=== PATIENT | male | born 1970 | race Caucasian/White ===

== ENCOUNTER 2019-06-21 17:26 | Inpatient (IN) | payer BC ==
[2019-06-21] MEDS ORDERED: FAMOTIDINE 20 MG/2 ML VIAL IV ONE (17:49)
[2019-06-21] MEDS ORDERED: NA CHLORIDE 0.9% 1,000 ML ONE (17:49)
[2019-06-21] MEDS ORDERED: PIPER/TAZO/NS 3.375gm 3.375 GM/100 ML BAG ONE (17:50)
[2019-06-21 17:53] LABS: Basophils % 0.1 % (0-1.3); Hematocrit 44.2 % (39.6-49.0); Lymphocytes % 5.7 % (15.3-44.8); MPV 8.5 fL (7.6-11.3); RBC Red Blood Cell Count 5.13 M/uL (4.33-5.43)
--- NOTE | 2019-06-21 17:54 | ER ---
Nurse's Notes [facility] Name: Deven Yang Jr Age: 48 yrs Sex: Male : 1970 Arrival Date: 06/21/2019 Time: 17:29 Bed 23 Private MD: Glen Corona R Diagnosis: Abdominal tenderness;Elevated white blood cell count;Cholelithiasis;Type 2 diabetes mellitus Presentation: 06/21 17:31 Presenting complaint: Patient states: sent by Dr Lawrence's office for cholecystitis, c/o sv epigastric and RUQ pain since Friday. Transition of care: patient was not received from another setting of care. Onset of symptoms was June 20, 2019. Risk Assessment: Do you want to hurt yourself or someone else? Patient reports no desire to harm self or others. Initial Sepsis Screen: Does the patient meet any 2 criteria? No. Patient's initial sepsis screen is negative. Does the patient have a suspected source of infection? No. Patient's initial sepsis screen is negative. Care prior to arrival: None. 17:31 Method Of Arrival: Ambulatory sv 17:31 Acuity: AB 3 sv Historical: - Allergies: 17:32 No Known Allergies; sv - PMHx: 17:32 Diabetes - NIDDM; sv - Immunization history:: Adult Immunizations up to date. - Social history:: Smoking status: unknown. - Family history:: not pertinent. - Ebola Screening: : No symptoms or risks identified at this time. Screenin:02 Abuse screen: Denies threats or abuse. Denies injuries from another. Nutritional rv screening: No deficits noted. Tuberculosis screening: No symptoms or risk factors identified. Fall Risk None identified. Assessment: 18:01 General: Appears in no apparent distress. comfortable, Behavior is calm, cooperative. rv Pain: Complains of pain in abdomen. Neuro: Level of Consciousness is awake, alert, obeys commands, Oriented to person, place, time, situation. Cardiovascular: Patient's skin is warm and dry. Respiratory: Airway is patent. GI: No signs and/or symptoms were reported involving the gastrointestinal system. : No signs and/or symptoms were reported regarding the genitourinary system. EENT: No signs and/or symptoms were reported regarding the EENT system. Derm: Skin is intact. Musculoskeletal: No signs and/or symptoms reported regarding the musculoskeletal system. Vital Signs: 17:33 BP 153 / 89; Pulse 105; Resp 18; Temp 97.9; Pulse Ox 96% ; Weight 105.23 kg; Height 5 sv ft. 11 in. (180.34 cm); Pain 3/10; 18:30 BP 140 / 67; Pulse 97; Resp 24; Pulse Ox 98% on R/A; rv 19:30 BP 140 / 53; Pulse 97; Resp 23; Pulse Ox 97% on R/A; rv 20:17 BP 132 / 66; Pulse 99; Resp 21; Temp 98; Pulse Ox 96% on R/A; rv 17:33 Body Mass Index 32.36 (105.23 kg, 180.34 cm) sv ED Course: 17:29 Patient arrived in ED. mr 17:29 Glen Corona MD is Private Physician. mr 17:32 Triage completed. sv 17:33 Arm band placed on. sv 17:34 Uri Ca MD is Attending Physician. angella 17:36 Ahmet Cueto RN is Primary Nurse. rv 17:52 Ga Self MD is Hospitalizing Provider. angella 17:52 PT-INR Sent. rv 17:55 Inserted saline lock: 18 gauge in right antecubital area, using aseptic technique. rv Blood collected. 17:59 EKG done, by certified medical technician assistant. reviewed by Uri Ca MD. sm3 18:02 Patient has correct armband on for positive identification. Bed in low position. Call rv light in reach. Side rails up X 1. personnel monitor on. Pulse ox on. NIBP on. 18:21 Chest Single View XRAY In Process Unspecified. EDMS 20:19 No provider procedures requiring assistance completed. Patient admitted, IV remains in rv place. Administered Medications: 17:55 Drug: NS 0.9% 1000 ml Route: IV; Rate: 1 bolus; Site: right antecubital; rv 20:20 Follow up: IV Status: Completed infusion rv 18:00 Drug: Pepcid 20 mg Route: IVP; Site: right antecubital; rv 20:12 Follow up: Response: No adverse reaction rv 18:00 Drug: Zosyn 3.375 grams Route: IVPB; Infused Over: 60 mins; Site: right antecubital; rv 20:20 Follow up: IV Status: Completed infusion rv 20:20 Not Given (Patient Refused): morphine 2 mg IVP once; (PAIN>8) RASS on ADMN: Combtv4, rv Very Agttd3, Agttd2, Rstlss1, AlertClm0, Drwsy-1, LtSdtn-2, ModSdtn-3, DpSdtn-4, UnArsble-5 x2 Outcome: 17:53 Decision to Hospitalize by Provider. angella 20:19 Admitted to Tele accompanied by tech, via wheelchair, room 411, with chart, Report rv called to ARTURO DAVID 20:19 Condition: good 20:19 Instructed on the need for admit. 20:41 Patient left the ED. rv Signatures: Dispatcher [employer] Michaelle Resendiz, RN RN Uri Lundy MD MD cha Rivera, Diana mr Bronson, Hollie 3 Ahmet Cueto RN RN rv
--- NOTE | 2019-06-21 17:54 | EDPHYS ---
Physician Documentation [facility] Name: Deven Yang Jr Age: 48 yrs Sex: Male : 1970 Arrival Date: 06/21/2019 Time: 17:29 Bed 23 Private MD: Glen Corona R ED Physician Uri Ca HPI: 06/21 17:47 This 48 yrs old Male presents to ER via Ambulatory with complaints of angella Abnormal Lab Results. 17:47 The patient presents with abdominal pain in the epigastric area, in the upper abdomen, angella abdominal distention in the upper abdomen, in the lower abdomen. Onset: The symptoms/episode began/occurred 2 day(s) ago. The symptoms do not radiate. Associated signs and symptoms: none. The symptoms are described as crampy. Modifying factors: The symptoms are alleviated by nothing, the symptoms are aggravated by food, movement, pressure. Severity of pain: At its worst the pain was moderate in the emergency department the pain has improved mildly. The patient has not experienced similar symptoms in the past. Historical: - Allergies: 17:32 No Known Allergies; sv - PMHx: 17:32 Diabetes - NIDDM; sv - Immunization history:: Adult Immunizations up to date. - Social history:: Smoking status: unknown. - Family history:: not pertinent. - Ebola Screening: : No symptoms or risks identified at this time. ROS: 17:47 Constitutional: Negative for fever, chills, and weight loss, Eyes: Negative for injury, angella pain, redness, and discharge, ENT: Negative for injury, pain, and discharge, Neck: Negative for injury, pain, and swelling, Cardiovascular: Negative for chest pain, palpitations, and edema, Respiratory: Negative for shortness of breath, cough, wheezing, and pleuritic chest pain, Back: Negative for injury and pain, : Negative for injury, bleeding, discharge, and swelling, MS/Extremity: Negative for injury and deformity, Skin: Negative for injury, rash, and discoloration, Neuro: Negative for headache, weakness, numbness, tingling, and seizure, Psych: Negative for depression, anxiety, suicide ideation, homicidal ideation, and hallucinations, Allergy/Immunology: Negative for hives, rash, and allergies, Endocrine: Negative for neck swelling, polydipsia, polyuria, polyphagia, and marked weight changes, Hematologic/Lymphatic: Negative for swollen nodes, abnormal bleeding, and unusual bruising. 17:47 Abdomen/GI: Positive for abdominal pain, abdominal cramps, of the right upper quadrant. Exam: 17:47 Constitutional: This is a well developed, well nourished patient who is awake, alert, angella and in no acute distress. Head/Face: Normocephalic, atraumatic. Eyes: Pupils equal round and reactive to light, extra-ocular motions intact. Lids and lashes normal. Conjunctiva and sclera are non-icteric and not injected. Cornea within normal limits. Periorbital areas with no swelling, redness, or edema. ENT: Nares patent. No nasal discharge, no septal abnormalities noted. Tympanic membranes are normal and external auditory canals are clear. Oropharynx with no redness, swelling, or masses, exudates, or evidence of obstruction, uvula midline. Mucous membranes moist. Neck: Trachea midline, no thyromegaly or masses palpated, and no cervical lymphadenopathy. Supple, full range of motion without nuchal rigidity, or vertebral point tenderness. No Meningismus. Chest/axilla: Normal chest wall appearance and motion. Nontender with no deformity. No lesions are appreciated. Cardiovascular: Regular rate and rhythm with a normal S1 and S2. No gallops, murmurs, or rubs. Normal PMI, no JVD. No pulse deficits. Respiratory: Lungs have equal breath sounds bilaterally, clear to auscultation and percussion. No rales, rhonchi or wheezes noted. No increased work of breathing, no retractions or nasal flaring. Back: No spinal tenderness. No costovertebral tenderness. Full range of motion. Male : Normal genitalia with no discharge or lesions. Skin: Warm, dry with normal turgor. Normal color with no rashes, no lesions, and no evidence of cellulitis. MS/ Extremity: Pulses equal, no cyanosis. Neurovascular intact. Full, normal range of motion. Neuro: Awake and alert, GCS 15, oriented to person, place, time, and situation. Cranial nerves II-XII grossly intact. Motor strength 5/5 in all extremities. Sensory grossly intact. Cerebellar exam normal. Normal gait. Psych: Awake, alert, with orientation to person, place and time. Behavior, mood, and affect are within normal limits. 17:47 Abdomen/GI: Inspection: distension, Bowel sounds: active, Palpation: moderate abdominal tenderness, in the epigastric area and right upper quadrant, Liver: no appreciated palpable abnormalities, Hernia: not appreciated. Vital Signs: 17:33 BP 153 / 89; Pulse 105; Resp 18; Temp 97.9; Pulse Ox 96% ; Weight 105.23 kg; Height 5 sv ft. 11 in. (180.34 cm); Pain 3/10; 18:30 BP 140 / 67; Pulse 97; Resp 24; Pulse Ox 98% on R/A; rv 19:30 BP 140 / 53; Pulse 97; Resp 23; Pulse Ox 97% on R/A; rv 20:17 BP 132 / 66; Pulse 99; Resp 21; Temp 98; Pulse Ox 96% on R/A; rv 17:33 Body Mass Index 32.36 (105.23 kg, 180.34 cm) sv MDM: 17:35 Patient medically screened. [facility] 17:51 Data reviewed: vital signs, nurses notes, lab test result(s), EKG, radiologic studies, [facility] plain films, ultrasound. 06/21 17:36 Order name: Basic Metabolic Panel; Complete Time: 18:55 [facility] 06/21 17:36 Order name: CBC with Diff; Complete Time: 18:55 [facility] 06/21 17:36 Order name: Creatinine for Radiology; Complete Time: 18:55 [facility] 06/21 17:36 Order name: Hepatic Function; Complete Time: 18:55 [facility] 06/21 17:36 Order name: Lipase; Complete Time: 18:55 [facility] 06/21 17:47 Order name: PT-INR; Complete Time: 18:55 [facility] 06/21 17:36 Order name: IV Saline Lock; Complete Time: 17:55 [facility] 06/21 17:40 Order name: EKG; Complete Time: 17:41 [facility] 06/21 17:40 Order name: Chest Single View XRAY; Complete Time: 18:55 [facility] 06/21 17:36 Order name: Labs collected and sent; Complete Time: 17:55 [facility] 06/21 17:40 Order name: EKG - Nurse/Tech; Complete Time: 17:47 [facility] Administered Medications: 17:55 Drug: NS 0.9% 1000 ml Route: IV; Rate: 1 bolus; Site: right antecubital; rv 20:20 Follow up: IV Status: Completed infusion rv 18:00 Drug: Pepcid 20 mg Route: IVP; Site: right antecubital; rv 20:12 Follow up: Response: No adverse reaction rv 18:00 Drug: Zosyn 3.375 grams Route: IVPB; Infused Over: 60 mins; Site: right antecubital; rv 20:20 Follow up: IV Status: Completed infusion rv 20:20 Not Given (Patient Refused): morphine 2 mg IVP once; (PAIN>8) RASS on ADMN: Combtv4, rv Very Agttd3, Agttd2, Rstlss1, AlertClm0, Drwsy-1, LtSdtn-2, ModSdtn-3, DpSdtn-4, UnArsble-5 x2 Disposition: 06/21/19 17:53 Hospitalization ordered by Ga Self for Inpatient Admission. Preliminary diagnosis are Abdominal tenderness, Elevated white blood cell count, Cholelithiasis, Type 2 diabetes mellitus. - Bed requested for Telemetry/MedSurg (Inpatient). - Status is Inpatient Admission. rv - Condition is Fair. - Problem is new. - Symptoms have improved. UTI on Admission? No Signatures: Dispatcher [employer] EDUT Michaelle Rizo RN RN sv Anderson, Corey, MD MD cha Garcia, Cindy, RN RN Ahmet Cueto RN RN rv Corrections: (The following items were deleted from the chart) 18:01 17:41 Abdomen Limited+US.RAD.BRZ ordered. [facility] EDUT 19:49 17:53 Hospitalization Ordered by Ga Self MD for Inpatient Admission. Preliminary cg diagnosis is Abdominal tenderness; Elevated white blood cell count; Cholelithiasis; Type 2 diabetes mellitus. Bed requested for Telemetry/MedSurg (Inpatient). Status is Inpatient Admission. Condition is Fair. Problem is new. Symptoms have improved. UTI on Admission? No. angella 20:41 19:49 06/21/2019 17:53 Hospitalization Ordered by Ga eSlf MD for Inpatient rv Admission. Preliminary diagnosis is Abdominal tenderness; Elevated white blood cell count; Cholelithiasis; Type 2 diabetes mellitus. Bed requested for Telemetry/MedSurg (Inpatient). Status is Inpatient Admission. Condition is Fair. Problem is new. Symptoms have improved. UTI on Admission? No. cg
[2019-06-21 18:06] LABS: Protime INR 1.32
[2019-06-21 18:22] LABS: Albumin 4.5 g/dL (3.4-5.0); Bilirubin Direct 0.3 mg/dL (0-0.2); Bilirubin Total 0.9 mg/dL (0.2-1.0); Potassium 4.4 mmol/L (3.5-5.1); Protein, Total 8.6 g/dL (6.4-8.2)
--- NOTE | 2019-06-21 18:38 | RAD REPORT ---
EXAM DESCRIPTION: RAD - Chest Single View - 06/21/2019 6:23 pm CLINICAL HISTORY: ABDOMINAL DISTENTION Chest pain. COMPARISON: No comparisons FINDINGS: Portable technique limits examination quality. Small calcified granuloma seen left mid lung. The lungs are otherwise clear. The heart is normal in s ize. No displaced fractures.
[2019-06-21] MEDS ORDERED: ONDANSETRON 4 MG/2 ML VIAL IV PRN (20:43)
[2019-06-21] MEDS: INSULIN -REGULAR HUMAN 50 UNIT/0.5 ML ML SQ SCH (21:00)
[2019-06-21 21:43] VITALS: BMI 32.3
[2019-06-21] MEDS: NA CHLORIDE 0.9% 1,000 ML IV SCH (22:00)
[2019-06-22 04:50] LABS: Urine Appearance CLEAR; Urine Bilirubin NEGATIVE (NEG); Urine Blood NEGATIVE (NEG); Urine Color YELLOW; Urine Glucose 3+ (NEG); Urine Protein 2+ (NEG); Urine Specific Gravity >=1.030 (1.005-1.030); Urine Urobilinogen 0.2 mg/dL (0.2-1.0); Urine pH 5.5 (5.0-7.0)
[2019-06-22 04:54] LABS: Absolute Lymphocytes (CBC) 1.2 K/uL (0.7-4.9); Basophils % 0.1 % (0-1.3); Hematocrit 42.9 % (39.6-49.0); MPV 8.8 fL (7.6-11.3); RBC Red Blood Cell Count 4.88 M/uL (4.33-5.43)
[2019-06-22 04:57] LABS: Urine Microscopic Reflex ORDER UMIC
[2019-06-22 05:12] LABS: ALT/SGPT 31 U/L (12-78); AST/SGOT 15 U/L (15-37); Albumin 3.5 g/dL (3.4-5.0); Alkaline Phosphatase 83 U/L (45-117); BUN Blood Urea Nitrogen 14 mg/dL (7-18); Bicarbonate 21 mmol/L (21-32); Bilirubin Total 0.8 mg/dL (0.2-1.0); Glucose Level 158 mg/dL (74-106); HDL Cholesterol 46 mg/dL (40-60); LDL Cholesterol, Calculated 46 (<130); Potassium 4.4 mmol/L (3.5-5.1); Protein, Total 7.8 g/dL (6.4-8.2); Sodium Level 138 mmol/L (136-145)
--- NOTE | 2019-06-22 06:12 | EKG ---
Test Date: 2019-06-21 Test Time: 17:48:23 Patient Service Rep: XOCHITL MEASUREMENT RESULTS: Intervals: Rate: 99 AK: 160 QRSD: 100 QT: 332 QTc: 426 [place]: P: 57 AK: 160 QRS: 106 T: 52 INTERPRETIVE STATEMENTS: Normal sinus rhythm Rightward axis Borderline ECG Compared to ECG 11/10/2015 08:46:04 Right-axis deviation now present Electronically Signed On 06-22-19 06:11:49 CDT by Huan Carrizlaes
[2019-06-22 06:30] LABS: Urine Bacteria <20 /HPF (NONE SEEN); Urine Culture Reflex Order NOT NEEDED; Urine Mucus 1+ /HPF (NONE SEEN); Urine RBC <5 /HPF (NONE SEEN)
[2019-06-22] MEDS: INSULIN -REGULAR HUMAN 50 UNIT/0.5 ML ML SQ SCH ×4 (07:30→21:00)
[2019-06-22] MEDS ORDERED: PNEUMOCOCCAL VACCINE 0.5 ML IMVAC ONE (08:00)
[2019-06-22] MEDS ORDERED: INFLUENZA VACCINE (for 3y+) 0.5 ML DOSE IMVAC ONE (08:00)
[2019-06-22] MEDS: NA CHLORIDE 0.9% 1,000 ML IV SCH ×3 (08:34→13:40)
[2019-06-22 08:36] LABS: Magnesium 2.5 mg/dL (1.8-2.4); Phosphorus 1.7 mg/dL (2.5-4.9)
[2019-06-22] MEDS ORDERED: CEFOXITIN/SWI 1gm 1 GM/10 ML SYR ONE (12:02)
[2019-06-22] MEDS ORDERED: FENTANYL CITR 100 MCG/2 ML ONE ×2 (12:29→13:31)
[2019-06-22] MEDS ORDERED: LIDOCAINE 2% MPF 5 ML VIAL ONE (12:29)
[2019-06-22] MEDS ORDERED: ROCURONIUM 50 MG/5 ML VIAL IV ONE (12:29)
[2019-06-22] MEDS ORDERED: PROPOFOL 200 MG/20 ML VIAL IV ONE (12:29)
[2019-06-22] MEDS ORDERED: MIDAZOLAM HCL 2 MG/2 ML INJ ONE (12:30)
[2019-06-22] MEDS ORDERED: ONDANSETRON 4 MG/2 ML VIAL ONE (12:53)
[2019-06-22] MEDS ORDERED: dexAMETHasone 4 MG/ML VIAL ONE (12:53)
--- NOTE | 2019-06-22 13:04 | CON ---
Date of Consultation: 06/22/2019 Diagnoses: Acute cholecystitis, symptomatic cholelithiasis. History Of Present Illness: This is the case of a 48-year-old patient, comes to us with epigastric r ight upper quadrant pain radiating to the back with nausea and vomiting. The patient has been seen y esterday at another institution, had an ultrasound showed gallstones. The patient came to this [facility], found to have acute cholecystitis. The patient was admitted to the hospital with leukocytosis. The patient has history of diabetes. He denies any dysuria, hematuria, hematochezia, or melena. De nies any recent traveling out of the country. Denies any family member sick at home. Past Medical History: [id number] diabetes. Allergies: NONE. Social History: He does not smoke. He does drink alcohol. Review of Systems: Ten points otherwise remarkable. Physical Examination: General: Patient is awake and alert. HEENT: Pupils are equal and reactive, anicteric. Neck: Supple. Chest: Clear. Abdomen: Gomez sign positive. Epigastric right upper quadrant tenderness with guarding and rebound . The rest of abdomen is soft and depressible. Rectal: Deferred. Extremities: Good capillary refill. Laboratory Data: Blood work shows WBC count of 18.2 with hemoglobin of 15.1. INR is 1.32, glucose 2 00, sodium is 135, total bilirubin of 0.9, alkaline phos is 78. Lipase 296. Ultrasound official rep ort still pending since they are coming from out of [facility]. It is reported as cholecystit is by Dr. Douglas in his office workup. Assessment: Acute cholecystitis, intractable pain sent to outpatient institution. The benefits, alt ernatives, and risks of laparoscopic, possible open cholecystectomy fully explained to the patient, w hich include but are not limited to infection, bleeding, damage to adjacent structures as complicatio n, choledocholithiasis, bile leak, pancreatitis, MD, and even . He also understands this may no t relieve any symptoms. He might need more than one surgical intervention. CESAR/IHSAN Voice ID: [id number] Report ID: [id number]
[2019-06-22] MEDS ORDERED: NA CHLORIDE 0.9% 1,000 ML ONE (13:13)
[2019-06-22] MEDS ORDERED: GLYCOPYRROLATE 0.2 MG/ML SYR ONE (14:15)
[2019-06-22] MEDS ORDERED: NEOSTIGMINE 1 MG/ML -10 ML VIAL ONE (14:22)
--- NOTE | 2019-06-22 14:30 | P.BOP ---
Preoperative diagnosis: acute RUQ pain, acute cholecystitis, symptomatic cholelithiasis Postoperative diagnosis: Purulent cholecystitis, incarcerated recurrent ventral hernia Primary procedure: 1. Laparoscopic cholecystectomy Secondary procedure: 2. Open repair of incarcerated recurrent ventral hernia Program Aide Group Work: Tonia Stein) Estimated blood loss: <50cc Specimen: GB. Hernia sac Findings: acute suppurative cholecystitis Anesthesia: General Complications: None Drain(s): RICHARD drain Transferred to: Recovery Room Condition: Good
--- NOTE | 2019-06-22 15:31 | P.HP ---
Certification for Inpatient Patient admitted to: Observation Practitioner: I am a practitioner with admitting privileges, knowledge of patient current condition, hospital course, and medical plan of care. Services: Services provided to patient in accordance with Admission requirements found in Title 42 Section 412.3 of the Code of Federal Regulations Patient History Date of Service: 06/21/19 Reason for admission: Dr. Garnica History of Present Illness: This is a 48-year-old male with past medical history diabetes, hypertension, hyperlipidemia who was sent from out side hospital for right upper quadrant pain. Patient and workup another outpatient facility, where he was found to have gallstones and acute cholecystitis. Patient preferred this hospital, therefore he was sent to the emergency room here. In the ER, he was found to be hemodynamically stable but labs were remarkable for leukocytosis. His labs were fairly stable, general surgery was consulted from the emergency room and patient was admitted for a acute cholecystitis. At the time of my exam, patient is alert oriented x3, in mild distress due to pain but hemodynamically stable. Allergies No Known Allergies Allergy (Verified 11/10/15 08:37) Home medications list reviewed: Yes Home Medications: Aspirin [Aspirin EC] 81 mg PO DAILY 11/10/15 Lisinopril [Zestril] 2.5 mg PO DAILY WITH BREAKFAST 11/10/15 Multivitamin [Multivitamins] 1 each PO DAILY 11/10/15 Pravastatin [Pravachol] 40 mg PO DAILY 11/10/15 Dapagliflozin Propanediol [Farxiga] 10 mg PO DAILY 06/21/19 Sitagliptin Phos/Metformin HCl [Janumet 50-1,000 mg Tablet] 1 tab PO BID - Past Medical/Surgical History Has patient received pneumonia vaccine in the past: No Diabetic: Yes -: DM -: HTN -: HLD - Social History Smoking Status: Never smoker Alcohol use: No CD- Drugs: No Caffeine use: Yes Place of Residence: Home Review of Systems 10-point ROS is otherwise unremarkable Physical Examination - Vital Signs Temperature: 98.9 F Blood Pressure: 141/69 Pulse: 98 Respirations: 16 Pulse Ox (%): 93 - Physical Exam General: Alert, In no apparent distress, Oriented x3 HEENT: Atraumatic, PERRLA, Mucous membr. moist/pink, EOMI, Sclerae nonicteric Neck: Supple, 2+ carotid pulse no bruit, No LAD, Without JVD or thyroid abnormality Respiratory: Clear to auscultation bilaterally, Normal air movement Cardiovascular: Regular rate/rhythm, Normal S1 S2 Gastrointestinal: Normal bowel sounds, Tenderness (Right upper quadrant) Musculoskeletal: No tenderness Integumentary: No rashes Neurological: Normal gait, Normal speech, Normal strength at 5/5 x4 extr, Normal tone, Normal affect Lymphatics: No axilla or inguinal lymphadenopathy - Studies Laboratory Data (last 24 hrs) 06/21/19 17:56: PT 15.4 H, INR 1.32 06/21/19 17:45: Creatinine 0.98 06/21/19 17:45: WBC 18.2 H, Hgb 15.1, Hct 44.2, Plt Count 236 06/21/19 17:45: Sodium 135 L, Potassium 4.4, BUN 17, Creatinine 1.00, Glucose 200 H, Total Bilirubin 0.9, AST 19, ALT 40, Alkaline Phosphatase 78, Lipase 296 Assessment and Plan - Problems (Diagnosis) (1) Acute cholecystitis Current Visit: Yes Status: Acute (2) Diabetes mellitus Current Visit: Yes Status: Acute (3) Hypertension Current Visit: Yes Status: Acute (4) Hyperlipidemia Current Visit: Yes Status: Acute (5) Obesity (BMI 30.0-34.9) Current Visit: Yes Status: Acute - Plan Admit patient to floor with tele General surgery consulted, awaiting recommendations Pain control IV fluids Monitor vital signs labs Disposition: Patient to be kept NPO post midnight for possible surgical intervention tomorrow - Advance Directives Does patient have a Living Will: No Does patient have a Durable POA for Healthcare: No Time Spent Managing Pts Care (In Minutes): 45
--- NOTE | 2019-06-22 15:32 | P.PN ---
Subjective Date of Service: 06/22/19 Chief Complaint: Dr. Garnica Subjective: No C/O voiced, Improving Patient seen and examined at bedside. No family at bedside. Chart reviewed and case discussed with nursing staff. Awaiting cholecystectomy today Review of Systems 10-point ROS is otherwise unremarkable Physical Examination - Vital Signs Temperature: 98.9 F Blood Pressure: 141/69 Pulse: 98 Respirations: 16 Pulse Ox (%): 93 - Physical Exam General: Alert, In no apparent distress HEENT: Atraumatic, PERRLA, EOMI Neck: Supple, JVD not distended Respiratory: Clear to auscultation bilaterally, Normal air movement Cardiovascular: Regular rate/rhythm, Normal S1 S2 Gastrointestinal: Normal bowel sounds, No tenderness Musculoskeletal: No tenderness Integumentary: No rashes Neurological: Normal speech, Normal tone, Normal affect Lymphatics: No axilla or inguinal lymphadenopathy - Studies Laboratory Data (last 24 hrs) 06/21/19 17:56: PT 15.4 H, INR 1.32 06/21/19 17:45: Creatinine 0.98 06/21/19 17:45: WBC 18.2 H, Hgb 15.1, Hct 44.2, Plt Count 236 06/21/19 17:45: Sodium 135 L, Potassium 4.4, BUN 17, Creatinine 1.00, Glucose 200 H, Total Bilirubin 0.9, AST 19, ALT 40, Alkaline Phosphatase 78, Lipase 296 Assessment And Plan - Current Problems (Diagnosis) (1) Acute cholecystitis Current Visit: Yes Status: Acute (2) Diabetes mellitus Current Visit: Yes Status: Acute (3) Hypertension Current Visit: Yes Status: Acute (4) Hyperlipidemia Current Visit: Yes Status: Acute (5) Obesity (BMI 30.0-34.9) Current Visit: Yes Status: Acute - Plan General surgery consulted, recommendations appreciated Pain control IV fluids IV and Monitor vital signs labs Continue home medications as tolerated Will likely start clear liquid diet after surgery today. Disposition: Pending cholecystectomy today
[2019-06-22] MEDS: PIPER/TAZO/NS 3.375gm 3.375 GM/100 ML BAG IVPB SCH (18:28)
[2019-06-22] MEDS: POTASS/SODIUM PHOSPHATE 1 PKT POWD.PACK PO SCH ×2 (22:03→23:13)
[2019-06-23] MEDS: PIPER/TAZO/NS 3.375gm 3.375 GM/100 ML BAG IVPB SCH ×3 (01:08→15:52)
[2019-06-23] MEDS: HYDROCODONE/APAP 7.5/325 MG TAB PO PRN ×2 (01:09→12:09)
[2019-06-23] MEDS: POTASS/SODIUM PHOSPHATE 1 PKT POWD.PACK PO SCH ×4 (01:09→12:10)
[2019-06-23] MEDS ORDERED: ACETAMINOPHEN 325 MG TABLET PO ONE (01:47)
--- NOTE | 2019-06-23 02:29 | OP ---
Date of Procedure: 06/22/2019 Surgeon: Lucio Miramontes MD Crossing Guard: Tonia Stein. Preoperative Diagnoses: Acute right upper quadrant abdominal pain, acute cholecystitis, symptomatic cholelithiasis. Postoperative Diagnoses: Purulent cholecystitis, incarcerated recurrent ventral hernia. Procedure: Laparoscopic cholecystectomy and open repair of an incarcerated recurrent ventral hernia. Specimens: Gallbladder and hernia sac. Findings: Patient has acute suppurative cholecystitis, inflammation of the gallbladder wall, thicken ing. The gallbladder was distended, open drainage. Patient has purulent discharge. We also have a ventral hernia. Patient has a previous incision in that region. When we went there patient has omen joel coming through that hernia that needs to be reduced and fixed. Anesthesia: General plus local. Indications: This is the case of a 48-year-old patient, who comes to us with abdominal pain. He has history of diabetes. He has been on and off in the medical care for the last few days, not getting better. He has been having this pain for few weeks, but it gets better and gets worse to the point r ight now that he just could not take it anymore. Patient was sent by Dr. Douglas's office to the ER a nd he was admitted and a surgical consult was obtained. He denies any trauma. He denies any hematoc hezia or melena. He denies any recent travelling out of the country. Denies any family member sick at home. Patient said he has history of hernia repair a few years ago in the ventral region. Laparo scopic possible open cholecystectomy was fully explained once again to the patient which include, but are not limited to infection, bleeding, damage to adjacent structures, anesthesia complication, chol elithiasis, bile leak, pancreatitis, OH, and even . He also understands this may not relieve an y symptoms. He might need more than one surgical intervention. He understood, signed a consent. Description Of Procedure: Patient was brought to the operating room, placed in supine position. Ane sthesia was done without complication. Abdominal area was prepped and draped in a sterile fashion. The previous incision was open and when we opened that incision there was a significantly large herni a. There was omentum coming through the hernia sac going to the part of the ventral region, so we we re able to identify the fascia edges, opened the hernia sac, took a look at the omentum, removed the adhesions of omentum to the hernia sac, reduced the omentum, removed the hernia sac and then cutting the fascia edges. This was enough for me to at least put 6 or 7 #1 Prolene to be able to close this large recurrent defect. I put all the stitches and then did not tie 3 of them. The reason I did not tie is because I wanted to put a Mars trocar through it and we did that and obtained pneumoperiton eum. Those stitches will be closed at the end. One we obtained pneumoperitoneum, we found another p roblem. Patient has inflamed gallbladder. The omentum was stuck to the gallbladder, very distended gallbladder. So in order for me to proceed to put 5 mm trocar, 3 of them in the right upper quadrant area and I had to deflate the gallbladder with the help of Endo needle under direct visualization. Purulent discharge was obtained from the gallbladder. Grasper was placed in that area and then in a very slow fashion making sure we went millimeter by millimeter, we were able to remove adhesions of o mentum and even stomach against the gallbladder. At this time I visualized the area of the infundibu lum. At that moment, we proceeded to identify the cystic artery and cystic duct. Common bile duct a nd the hepatic arteries were identified and protected away from the surgical field. I proceeded to l igate those by using at least 3 clips proximal, 1 clip distal, and ligation in the middle. Same was done with the cystic artery. No bile leak. No bleeding. We had the gallbladder retract in the infe rolateral fashion exposing the triangle of Calot, obtaining critical view of safety and then we proce eded with the ligation and also the clips as described above. After that, I proceeded to remove the gallbladder from the liver using Bovie cauterizer. At 1 point, at the distal part, really on top of the liver we had some areas with some gangrenous changes in the gallbladder. So, we removed the gall bladder completely, irrigated the area profusely. Because of all this disease in that area I put a J ackson-Ocampo exiting through one of the trocar sites connected to bulb suction. This was after irrig ation and suction. Before closing the abdomen we made sure that the clips were intact with no bile l eak and no bleeding. At that moment, I proceeded to remove the trocars in direct vision. Deflated t he pneumoperitoneum and then proceeded to close the hernia once again with #1 Prolene in a figure-of- eight fashion multiple times until completely close. The area was irrigated. Patient has a cavity o quinton the ventral region because patient has omentum in that area creating a space, so trying to leave the space the best I can to avoid seroma or abscess and the patient has an infection in the abdomen. Then, after that, I closed the skin with josué. RICHARD connected to bulb suction. Patient tolerated the procedure well. Patient will remain on antibiotics. CESAR/IHSAN Voice ID: [id number] Report ID: [id number]
[2019-06-23] MEDS: NA CHLORIDE 0.9% 1,000 ML IV SCH ×2 (02:41→22:43)
[2019-06-23 05:15] LABS: Hematocrit 36.6 % (39.6-49.0); Lymphocytes % 6.8 % (15.3-44.8); MPV 8.5 fL (7.6-11.3); RBC Red Blood Cell Count 4.15 M/uL (4.33-5.43)
[2019-06-23 05:33] LABS: ALT/SGPT 103 U/L (12-78); AST/SGOT 67 U/L (15-37); Albumin 2.9 g/dL (3.4-5.0); Alkaline Phosphatase 70 U/L (45-117); BUN Blood Urea Nitrogen 13 mg/dL (7-18); Bicarbonate 25 mmol/L (21-32); Bilirubin Total 0.7 mg/dL (0.2-1.0); Glucose Level 191 mg/dL (74-106); Phosphorus 2.2 mg/dL (2.5-4.9); Potassium 4.3 mmol/L (3.5-5.1); Protein, Total 6.8 g/dL (6.4-8.2); Sodium Level 144 mmol/L (136-145)
[2019-06-23] MEDS: INSULIN -REGULAR HUMAN 50 UNIT/0.5 ML ML SQ SCH ×4 (07:30→20:37)
--- NOTE | 2019-06-23 10:00 | P.PN ---
Subjective Date of Service: 06/23/19 Chief Complaint: Dr. Garnica Subjective: Improving Patient seen and examined at bedside. No family at bedside. Chart reviewed and case discussed with nursing staff. s/p cholecystectomy POD#1; C/o soreness in abdomen Tolerating clear liquids Passing gas, No bowel movement yet ambulating without concerns Review of Systems 10-point ROS is otherwise unremarkable Physical Examination - Vital Signs Temperature: 98.2 F Blood Pressure: 134/69 Pulse: 92 Respirations: 18 Pulse Ox (%): 93 - Physical Exam General: Alert, In no apparent distress, Oriented x3 HEENT: Atraumatic, PERRLA, EOMI Neck: Supple, JVD not distended Respiratory: Clear to auscultation bilaterally, Normal air movement Cardiovascular: Regular rate/rhythm, Normal S1 S2 Gastrointestinal: Normal bowel sounds, No tenderness, Other (RICHARD drain in place; incision site clean/dry/intact) Musculoskeletal: No tenderness Integumentary: No rashes Neurological: Normal speech, Normal tone, Normal affect Lymphatics: No axilla or inguinal lymphadenopathy Assessment And Plan - Current Problems (Diagnosis) (1) Acute cholecystitis Current Visit: Yes Status: Acute (2) Diabetes mellitus Current Visit: Yes Status: Acute (3) Hypertension Current Visit: Yes Status: Acute (4) Hyperlipidemia Current Visit: Yes Status: Acute (5) Obesity (BMI 30.0-34.9) Current Visit: Yes Status: Acute - Plan General surgery consulted, recommendations appreciated. Patient s/p POD #1 lap neisha Continue Pain control IV fluids Monitor vital signs labs Continue home medications as tolerated Advance diet per general surgery Disposition: Pending symptomatic improvement; Anticipate discharge tomorrow
[2019-06-23] MEDS ORDERED: ACETAMINOPHEN 325 MG TABLET PO PRN (22:14)
[2019-06-24] MEDS: PIPER/TAZO/NS 3.375gm 3.375 GM/100 ML BAG IVPB SCH ×3 (00:28→15:42)
[2019-06-24] MEDS: NA CHLORIDE 0.9% 1,000 ML IV SCH ×2 (00:28→08:33)
[2019-06-24 04:35] LABS: Absolute Lymphocytes (CBC) 1.3 K/uL (0.7-4.9); Basophils % 0.3 % (0-1.3); Hematocrit 35.2 % (39.6-49.0); Lymphocytes % 13.8 % (15.3-44.8); MPV 8.6 fL (7.6-11.3); RBC Red Blood Cell Count 4.07 M/uL (4.33-5.43)
[2019-06-24 04:43] LABS: ALT/SGPT 77 U/L (12-78); AST/SGOT 43 U/L (15-37); Albumin 2.8 g/dL (3.4-5.0); Alkaline Phosphatase 66 U/L (45-117); BUN Blood Urea Nitrogen 14 mg/dL (7-18); Bicarbonate 28 mmol/L (21-32); Bilirubin Total 0.5 mg/dL (0.2-1.0); Glucose Level 181 mg/dL (74-106); Potassium 3.9 mmol/L (3.5-5.1); Protein, Total 6.6 g/dL (6.4-8.2); Sodium Level 140 mmol/L (136-145)
[2019-06-24] MEDS: INSULIN -REGULAR HUMAN 50 UNIT/0.5 ML ML SQ SCH ×3 (07:30→16:30)
[2019-06-24] MEDS ORDERED: POTASSIUM CL SA 10 MEQ TAB PO ONE (08:00)
[2019-06-24] MEDS: POTASS/SODIUM PHOSPHATE 1 PKT POWD.PACK PO SCH ×3 (08:23→11:43)
[2019-06-24] MEDS ORDERED: HOME MED 1 EA UNK (Dapagliflozin Propanediol [Farxiga] 10 MG) PO SCH (09:00)
[2019-06-24 12:18] VITALS: O2SAT 92
[2019-06-24 16:49] VITALS: BP 139/70; TEMP 97.6
--- NOTE | 2019-06-27 14:41 | P.DS ---
Admission Date: 06/23/19 Discharge Date: 06/24/19 Primary Care Provider: Dr. Garnica Disposition: ROUTINE DISCHARGE Discharge Condition: GOOD Reason for Admission: Abdominal pain Consultations: Dr. Miramontes, general surgery Procedures: Lap choly and open hernia repair - Problems (1) Acute cholecystitis Status: Acute (2) Diabetes mellitus Status: Acute (3) Hypertension Status: Acute (4) Hyperlipidemia Status: Acute (5) Obesity (BMI 30.0-34.9) Status: Acute Brief History of Present Illness: This is a 48-year-old male with past medical history diabetes, hypertension, hyperlipidemia who was sent from out side hospital for right upper quadrant pain. Patient and workup another outpatient facility, where he was found to have gallstones and acute cholecystitis. Patient preferred this hospital, therefore he was sent to the emergency room here. In the ER, he was found to be hemodynamically stable but labs were remarkable for leukocytosis. His labs were fairly stable, general surgery was consulted from the emergency room and patient was admitted for a acute cholecystitis. At the time of my exam, patient is alert oriented x3, in mild distress due to pain but hemodynamically stable. Hospital Course: General surgery consulted, patient underwent lap neisha, and open hernia repair. He was found to have a pretty big infection, therefore was continued on IV antibiotics. He otherwise remained stable throughout the stay. His symptoms improved. He was started on clear liquid diet, advance as tolerated. Prior to discharge, patient was tolerating a GI soft diet, was hemodynamically stable, symptom-free and alert oriented x3. His diagnosis and treatment plan was explained to him, all questions were answered and he verbalized understanding. He was then discharged home in a safe and stable manner. He was discharged on oral antibiotics as well as instructions to follow up with Dr. Miramontes in 1 week for drain removal. Vital Signs/Physical Exam: Temp Pulse Resp BP Pulse Ox 97.6 F 88 18 139/70 94 06/24/19 16:00 06/24/19 16:00 06/24/19 16:00 06/24/19 16:00 06/24/19 16:00 General: Alert, In no apparent distress HEENT: Atraumatic, PERRLA, EOMI Neck: Supple, JVD not distended Respiratory: Clear to auscultation bilaterally, Normal air movement Cardiovascular: Regular rate/rhythm, Normal S1 S2 Gastrointestinal: Normal bowel sounds, No tenderness Musculoskeletal: No tenderness Integumentary: No rashes Neurological: Normal speech, Normal tone, Normal affect Lymphatics: No axilla or inguinal lymphadenopathy Laboratory Data at Discharge: WBC 9.1 K/uL (4.3-10.9) D 06/24/19 03:49 Hgb 12.2 g/dL (13.6-17.9) L 06/24/19 03:49 Hct 35.2 % (39.6-49.0) L 06/24/19 03:49 Plt Count 223 K/uL (152-406) 06/24/19 03:49 PT 15.4 SECONDS (9.5-12.5) H 06/21/19 17:56 INR 1.32 06/21/19 17:56 Sodium 140 mmol/L (136-145) 06/24/19 03:49 Potassium 3.9 mmol/L (3.5-5.1) 06/24/19 03:49 BUN 14 mg/dL (7-18) 06/24/19 03:49 Creatinine 0.77 mg/dL (0.55-1.3) 06/24/19 03:49 Glucose 181 mg/dL (74-106) H 06/24/19 03:49 Phosphorus 1.9 mg/dL (2.5-4.9) L 06/24/19 03:49 Magnesium 2.5 mg/dL (1.8-2.4) H 06/22/19 04:14 Total Bilirubin 0.5 mg/dL (0.2-1.0) 06/24/19 03:49 AST 43 U/L (15-37) H 06/24/19 03:49 ALT 77 U/L (12-78) 06/24/19 03:49 Alkaline Phosphatase 66 U/L (45-117) 06/24/19 03:49 Triglycerides 83 mg/dL (<150) 06/22/19 04:14 Cholesterol 109 mg/dL (<200) 06/22/19 04:14 HDL Cholesterol 46 mg/dL (40-60) 06/22/19 04:14 Cholesterol/HDL Ratio 2.37 06/22/19 04:14 Lipase 296 U/L (73-393) 06/21/19 17:45 Home Medications: Aspirin [Aspirin EC 81 MG] 81 mg PO DAILY 11/10/15 Lisinopril [Zestril] 2.5 mg PO DAILY WITH BREAKFAST 11/10/15 Multivitamin [Multivitamins] 1 each PO DAILY 11/10/15 Pravastatin [Pravachol*] 40 mg PO DAILY 11/10/15 Dapagliflozin Propanediol [Farxiga] 10 mg PO DAILY 06/21/19 Sitagliptin Phos/Metformin HCl [Janumet 50-1,000 mg Tablet] 1 tab PO BID Ciprofloxacin HCl [Cipro 500 MG Tablet] 500 mg PO BID #14 tab 06/24/19 New Medications: Ciprofloxacin HCl [Cipro 500 MG Tablet] 500 mg PO BID #14 tab Patient Discharge Instructions: Please follow up with your primary care physician in 2-3 days. Please follow up with Dr. Miramontes in 1 week. Return to the ER for woestning symptoms. Diet: as tolerated Activity: No lifting more than 10 lbs Followup: Lucio Miramontes MD [ACTIVE - CAN ADMIT] - 1 Week (call to schedule appointment) Danny Miranda MD [Primary Care Provider] - (call to schedule appointment) Time spent managing pt's care (in minutes): 55
== END 2019-06-24 17:00 | disposition home or self-care (01) | DRG 418 ==
LOC: ER 17:26 → ERHOLD 18:41 → 4TH 20:19 → OBSVTOIN 06-23 10:14
PROVIDERS: ADMIT Family Medicine; ATTEND Family Medicine
PROC: 0WQF0ZZ Repair Abdominal Wall, Open Approach (ICD-10-PCS; 2019-06-22)
PROC: 0FT44ZZ Resection of Gallbladder, Percutaneous Endoscopic Approach (ICD-10-PCS; principal; 2019-06-22 12:15)
DX: K81.0 Acute cholecystitis (principal); K43.0 Incisional hernia with obstruction, without gangrene; E11.9 Type 2 diabetes mellitus without complications; I10 Essential (primary) hypertension; E78.5 Hyperlipidemia, unspecified; E66.9 Obesity, unspecified; D72.829 Elevated white blood cell count, unspecified; Z68.32 Body mass index [BMI] 32.0-32.9, adult
CPT/HCPCS: 36415; 71045; 80048; 80053; 80061; 80076; 81003; 81015; 82962; 83690; 83735; 84100; 85025; 85610; 88302; 88304; 93005; 94760; 96365; 96366; 96375; 99285; G0378; J2250; J2405; J2543; J2704; J2710; J3010; J7030